=== PATIENT | female | born 1980 ===

== ENCOUNTER 2017-05-22 17:34 | Emergency (ER) | payer MEDICAID ==
[~2017-05-22] VITALS: Wt 71.5 kg
--- NOTE | 2017-05-22 21:44 | RADRPT ---
PROCEDURE: Toe x-ray. CLINICAL INDICATION: Pain. TECHNIQUE: AP, lateral, oblique views of the left great toe COMPARISON: None. FINDINGS: No evidence of fracture, dislocation, or soft tissue abnormality. The joint spaces are well maintain ed. There is no cortical destruction or radiopaque foreign body. IMPRESSION: No fracture, dislocation, or soft tissue abnormality. RPTAT:AAJJ Willow Escobar Physician Date Time Electronically viewed and signed by Physician Hola on 05/22/2017 21:44 KATHY/
[2017-05-22] MEDS ORDERED: NAPR-260 PO (21:53)
--- NOTE | 2017-05-22 23:23 | ERD ---
ER Documentation Chief Complaint Chief Complaint left 1st toe pain/swelling x 2 hours HPI 37-year-old female complaining of pain to her left first toe 2 hours. Patient' s daughter stepped on her toe when she was walking and it pulled her foot. Patient is concerned she may have a fracture. Pain is worse with ambulation. Has not taken medications for pain. Denies any numbness or tingling. Has pain with movement and feels she is unable to move her toe. ROS All systems reviewed and are negative except as per history of present illness. Medications Home Meds Active Scripts Naproxen* (Naprosyn*) 500 Mg Tablet, 500 MG PO BID Y for PAIN AND/OR INFLAMMATION, #30 TAB Prov:TERESA PEARL PA-C 05/22/17 Allergies Allergies: Coded Allergies: No Known Allergy (Unverified , 05/22/17) PMhx/Soc Medical and Surgical Hx: pt denies Medical Hx, pt denies Surgical Hx Hx Alcohol Use: No Hx Substance Use: No Hx Tobacco Use: No Smoking Status: Never smoker Physical Exam Vitals Vital Signs Date Time Temp Pulse Resp B/P Pulse Ox O2 Delivery O2 Flow Rate FiO2 05/22/17 18:11 99.7 83 18 129/70 100 Physical Exam GENERAL: The patient is well-appearing, well-nourished, in no acute distress CHEST: Clear to auscultation bilaterally. There are no rales, wheezes or rhonchi. HEART: Regular rate and rhythm. No murmurs, clicks, rubs or gallops. No S3 or S4. EXTREMITIES: Tender toe palpation to left great toe. No obvious deformity. Mild range of motion limited secondary to pain. Neurovascularly intact NEUROLOGIC: Alert and oriented. Cranial nerves II through XII intact. Motor strength in all 4 extremities with 5 out of 5 strength. Sensation grossly intact. Normal speech and gait. Babinski negative. DTR 2+ throughout. SKIN: There is no apparent rash or petechiae. The skin is warm and dry. Procedures/MDM DIAGNOSTIC IMAGING REPORT Patient: JUSTIN VALDEZ : 1980 Age: 37 Sex: F MR #: [id number] DOS: 05/22/172041 Ordering MD: NEREYDA PEARL PA-C Location: [facility] Room/Bed: PROCEDURE: Toe x-ray. CLINICAL INDICATION: Pain. TECHNIQUE: AP, lateral, oblique views of the left great toe COMPARISON: None. FINDINGS: No evidence of fracture, dislocation, or soft tissue abnormality. The joint spaces are well maintained. There is no cortical destruction or radiopaque foreign body. IMPRESSION: No fracture, dislocation, or soft tissue abnormality. MDM: 37-year-old female complaining of pain to left great toe. I have low suspicion for acute fracture dislocation. Patient's x-ray is within normal limits. I have low suspicion for neurodeficit. I have low suspicion for tendon or ligament rupture. Patient is discharged with strict ER precautions and recommended to follow-up with primary care within 1-2 days for close evaluation. All questions answered at discharge Departure Diagnosis: Primary Impression: Injury of toe Additional Impression: Pain of toe Condition: Stable Patient Instructions: Sprain Toe Referrals: [facility] YOU HAVE RECEIVED A MEDICAL SCREENING EXAM AND THE RESULTS INDICATE THAT YOU DO NOT HAVE A CONDITION THAT REQUIRES URGENT TREATMENT IN THE EMERGENCY DEPARTMENT. FURTHER EVALUATION AND TREATMENT OF YOUR CONDITION CAN WAIT UNTIL YOU ARE SEEN IN YOUR DOCTORS OFFICE WITHIN THE NEXT 1-2 DAYS. IT IS YOUR RESPONSIBILITY TO MAKE AN APPOINTMENT FOR FOLOW-UP CARE. IF YOU HAVE A PRIMARY DOCTOR --you should call your primary doctor and schedule an appointment IF YOU DO NOT HAVE A PRIMARY DOCTOR YOU CAN CALL OUR PHYSICIAN REFERRAL HOTLINE AT IF YOU CAN NOT AFFORD TO SEE A PHYSICIAN YOU CAN CHOSE FROM THE FOLLOWING [facility] [address] [facility]. [facility] [address] [facility] [address] [facility] [facility] [address] [facility] [facility] [address] [facility]. [facility] [address] [facility]. [facility] [address] Additional Instructions: FOLLOW UP WITH YOUR PRIMARY CARE PHYSICIAN TOMORROW.Return to this facility if you are not improving as expected. TERESA PEARL PA-C May 22, 2017 23:23
== END 2017-05-22 22:35 | disposition home or self-care (01) ==
LOC: FTE 17:34
DX: S99.922A Unspecified injury of left foot, initial encounter (principal); X58.XXXA Exposure to other specified factors, initial encounter; Y92.9 Unspecified place or not applicable
CPT/HCPCS: 73660; Z7502